=== PATIENT | female | born 1955 | race Caucasian/White ===

== ENCOUNTER 2023-06-10 21:24 | Emergency (ER) | payer SELFPAY ==
[~2023-06-10] VITALS: Ht 154.9 cm; Wt 61.7 kg
[2023-06-10 21:42] VITALS: TEMP 97.8
[2023-06-10] MEDS ORDERED: ACETAMINOPHEN 325 MG TABLET ONE (22:48)
[2023-06-10] MEDS ORDERED: ACETAMINOPHEN 325 MG TABLET PO ONE (23:00)
[2023-06-11 01:16] VITALS: BP 121/84; O2SAT 96
== END 2023-06-11 | disposition home or self-care (01) ==
LOC: ER 21:33
DX: S09.8XXA Other specified injuries of head, initial encounter (principal); V89.0XXA Person injured in unspecified motor-vehicle accident, nontraffic, initial encounter; Y93.89 Activity, other specified; Y92.89 Other specified places as the place of occurrence of the external cause; Y99.8 Other external cause status
CPT/HCPCS: 70450-TC; 72125-TC